=== PATIENT | female | born 1990 | race Caucasian/White ===

== ENCOUNTER 2016-10-22 22:18 | Emergency (ER) | payer SELFPAY | END 2016-10-22 23:53 | disposition home or self-care (01) | LOC: ER1 22:18 | DX: S93.491A Sprain of other ligament of right ankle, initial encounter (principal); W18.40XA Slipping, tripping and stumbling without falling, unspecified, initial encounter | CPT/HCPCS: 73610; 73630; 99283 ==

== ENCOUNTER → 2021-05-16 | Outpatient (CLI) | payer BC ==
[~2021-05-16] MED LIST: ANTIVERT 25MG T25 MG PO; CEFUROXIME500 MG PO; IBUPROFEN600 MG PO; ZOFRAN ODT 4 MG4 MG GT
== END ==
LOC: KOH-I 08:35
DX: M25.521 Pain in right elbow (principal)
CPT/HCPCS: 73080